=== PATIENT | female | born 1970 | race Caucasian/White ===

== ENCOUNTER → 2024-08-02 09:23 | Outpatient (REF) | payer OTHER, SELFPAY | LOC: PAVMRI 09:23 | PROVIDERS: ATTENDING PHYSICIAN Orthopaedic Surgery Hand Surgery; FAMILY PHYSICIAN Family Medicine | DX: S63.591A Other specified sprain of right wrist, initial encounter (principal); W19.XXXA Unspecified fall, initial encounter | CPT/HCPCS: 73221 ==

== ENCOUNTER 2024-09-04 07:45 | Outpatient (RCR) | payer OTHER, SELFPAY | END 2024-09-04 23:59 | disposition home or self-care (01) | LOC: ROT 07:45 | PROVIDERS: ATTENDING PHYSICIAN Orthopaedic Surgery Hand Surgery; FAMILY PHYSICIAN Family Medicine | DX: M77.8 Other enthesopathies, not elsewhere classified (principal); Z73.6 Limitation of activities due to disability; M25.531 Pain in right wrist | CPT/HCPCS: 97018; 97166; 97535 ==

== ENCOUNTER 2024-10-07 15:58 | Outpatient (RCR) | payer OTHER, SELFPAY | END 2024-10-07 23:59 | disposition home or self-care (01) | LOC: ROT 15:58 | PROVIDERS: ATTENDING PHYSICIAN Orthopaedic Surgery Hand Surgery; FAMILY PHYSICIAN Family Medicine | DX: M77.8 Other enthesopathies, not elsewhere classified (principal); Z73.6 Limitation of activities due to disability; M25.531 Pain in right wrist | CPT/HCPCS: 97018; 97022; 97110; 97140 ==

== ENCOUNTER 2024-11-04 15:50 | Outpatient (RCR) | payer OTHER, SELFPAY | END 2024-11-04 23:59 | disposition home or self-care (01) | LOC: ROT 15:50 | PROVIDERS: ATTENDING PHYSICIAN Orthopaedic Surgery Hand Surgery; FAMILY PHYSICIAN Family Medicine | DX: M77.8 Other enthesopathies, not elsewhere classified (principal); Z73.6 Limitation of activities due to disability; M25.531 Pain in right wrist | CPT/HCPCS: 97018; 97022; 97110; 97140; 97535 ==